=== PATIENT | male | born 1930 | race Caucasian/White ===

== ENCOUNTER 2021-07-09 14:54 | Inpatient (IN) ==
[2021-07-09] MEDS ORDERED: *HR* Dextrose 50 % in Water (Syg) 50 ML SYRINGE IVP PRN (15:30)
[2021-07-09] MEDS ORDERED: D5% in Water 1,000 ML IVC PRN (15:30)
[2021-07-09] MEDS ORDERED: Dextrose Gel 15 GM/37.5 ML TUBE PO PRN ×2 (15:30)
[2021-07-09] MEDS ORDERED: Warfarin perPT PO PRN (18:00)
[2021-07-09] MEDS: Insulin LISPRO 300 UNITS/3 ML VIAL SUBQ SCH ×2 (21:44)
[2021-07-09] MEDS: Gabapentin 400 MG CAPSULE PO SCH (22:30)
[2021-07-10] MEDS: *HR* OxyCODONE Immed Rel 5 MG TABLET PO PRN ×3 (04:45→17:12)
[2021-07-10 05:34] LABS: Basophils % 0.4 %; Eosinophils # 0.3 K/mcL (0.0-0.6); Eosinophils % 4.1 %; Hematocrit 31.3 % (37.5-50.1); Immature Granulocytes % 1.2 % (0-4); Lymphocytes # 0.9 K/mcL (0.6-4.6); Lymphocytes % 12.3 %; Mean Corpuscular HGB Conc 31.9 g/dL (31.6-35.5); Mean Corpuscular Volume 96.9 fL (83.0-100.0); Monocytes # 0.9 K/mcL (0.0-1.3); Monocytes % 11.8 %; Neutrophils # 5.1 K/mcL (1.6-8.9); Platelet Count 154 K/mcL (140-400); Red Blood Count 3.23 M/mcL (4.19-5.50); Red Cell Distribution Width 14.6 % (11.5-14.5); Segmented Neutrophils % 70.2 %; White Blood Count 7.3 K/mcL (4.3-11.1)
[2021-07-10 05:38] LABS: INR 1.4; Prothrombin Time 15.7 Seconds (9.4-12.1)
[2021-07-10 05:48] LABS: Calcium 8.1 mg/dL (8.6-10.3); Potassium 4.4 mEq/L (3.5-5.1)
[2021-07-10] MEDS: *HR* Enoxaparin 100 MG/ML SYRINGE SQ SCH ×3 (06:30→17:12)
[2021-07-10] MEDS: Insulin LISPRO 300 UNITS/3 ML VIAL SUBQ SCH ×4 (09:05→19:50)
[2021-07-10] MEDS: lisinopriL 5 MG TABLET PO SCH (09:06)
[2021-07-10] MEDS: Furosemide 40 MG TABLET PO SCH (09:07)
[2021-07-10] MEDS: Gabapentin 400 MG CAPSULE PO SCH ×2 (09:07→20:07)
[2021-07-10] MEDS ORDERED: MOM Conc 10 ML UD.LIQ PO PRN (11:04)
[2021-07-10] MEDS ORDERED: Ipratropium/Albuterol Neb 3 ML IH PRN (12:46)
[2021-07-10] MEDS ORDERED: *HR* Warfarin 3 MG TABLET PO ONE (18:00)
[2021-07-10] MEDS: polyethylene glycoL 3350 17 GM POWD.PACK PO SCH (20:07)
[2021-07-10] MEDS ORDERED: Sennosides/Docusate Sodium TABLET PO PRN (21:00)
[2021-07-11] MEDS: *HR* Enoxaparin 100 MG/ML SYRINGE SQ SCH (05:30)
[2021-07-11] MEDS: *HR* OxyCODONE Immed Rel 5 MG TABLET PO PRN (05:30)
[2021-07-11] MEDS ORDERED: Acetaminophen 325 MG TABLET PO PRN (06:00)
[2021-07-11 06:33] LABS: INR 1.6; Prothrombin Time 17.9 Seconds (9.4-12.1)
[2021-07-11] MEDS: polyethylene glycoL 3350 17 GM POWD.PACK PO SCH (08:49)
[2021-07-11] MEDS: *HR* OxyCODONE/APAP 7.5/325 TABLET PO PRN (08:49)
[2021-07-11] MEDS: tiZANidine 4 MG TABLET PO PRN (08:49)
[2021-07-11] MEDS: lisinopriL 5 MG TABLET PO SCH (08:50)
[2021-07-11] MEDS: Insulin LISPRO 300 UNITS/3 ML VIAL SUBQ SCH ×4 (08:50→21:32)
[2021-07-11] MEDS: Gabapentin 400 MG CAPSULE PO SCH (08:50)
[2021-07-11] MEDS: Furosemide 40 MG TABLET PO SCH (08:50)
[2021-07-11 11:53] LABS: Hematocrit 26.4 % (37.5-50.1); Hemoglobin 8.4 g/dL (12.9-16.9); Mean Corpuscular HGB Conc 31.8 g/dL (31.6-35.5); Mean Corpuscular Hemoglobin 30.8 pg (28.0-33.3); Mean Corpuscular Volume 96.7 fL (83.0-100.0); Mean Platelet Volume 10.5 fL (9.4-12.4); Platelet Count 168 K/mcL (140-400); Red Blood Count 2.73 M/mcL (4.19-5.50); Red Cell Distribution Width 14.7 % (11.5-14.5); White Blood Count 7.3 K/mcL (4.3-11.1)
[2021-07-11] MEDS: Gabapentin 300 MG CAPSULE PO SCH ×2 (15:54→19:58)
[2021-07-11] MEDS ORDERED: *HR* Warfarin 3 MG TABLET PO ONE (18:00)
[2021-07-12] MEDS: *HR* OxyCODONE Immed Rel 5 MG TABLET PO PRN (02:08)
[2021-07-12 06:03] LABS: Basophils % 0.3 %; Eosinophils # 0.4 K/mcL (0.0-0.6); Eosinophils % 5.1 %; Hematocrit 26.6 % (37.5-50.1); Hemoglobin 8.4 g/dL (12.9-16.9); Immature Granulocytes % 2.2 % (0-4); Lymphocytes # 0.9 K/mcL (0.6-4.6); Lymphocytes % 13.1 %; Mean Corpuscular HGB Conc 31.6 g/dL (31.6-35.5); Mean Corpuscular Hemoglobin 30.5 pg (28.0-33.3); Mean Corpuscular Volume 96.7 fL (83.0-100.0); Mean Platelet Volume 9.8 fL (9.4-12.4); Monocytes # 0.7 K/mcL (0.0-1.3); Monocytes % 10.6 %; Neutrophils # 4.7 K/mcL (1.6-8.9); Platelet Count 170 K/mcL (140-400); Red Blood Count 2.75 M/mcL (4.19-5.50); Red Cell Distribution Width 14.6 % (11.5-14.5); Segmented Neutrophils % 68.7 %; White Blood Count 6.9 K/mcL (4.3-11.1)
[2021-07-12 06:16] LABS: INR 1.6; Prothrombin Time 18.3 Seconds (9.4-12.1)
[2021-07-12 06:24] LABS: Albumin 2.6 g/dL (3.5-5.7); Albumin/Globulin Ratio 0.9 (1.1-2.2); Bilirubin,Total 0.8 mg/dL (0.3-1.0); Calcium 8.1 mg/dL (8.6-10.3); Globulin 2.8 g/dL (2.4-3.5); Potassium 4.4 mEq/L (3.5-5.1); Total Protein 5.4 g/dL (6.4-8.9)
[2021-07-12] MEDS: lisinopriL 5 MG TABLET PO SCH (07:27)
[2021-07-12] MEDS: *HR* OxyCODONE/APAP 7.5/325 TABLET PO PRN ×3 (07:27→21:50)
[2021-07-12] MEDS: Gabapentin 300 MG CAPSULE PO SCH ×3 (07:28→21:49)
[2021-07-12] MEDS: Furosemide 40 MG TABLET PO SCH (07:28)
[2021-07-12] MEDS: polyethylene glycoL 3350 17 GM POWD.PACK PO SCH (07:28)
[2021-07-12] MEDS: Insulin LISPRO 300 UNITS/3 ML VIAL SUBQ SCH ×4 (07:32→21:49)
[2021-07-12] MEDS ORDERED: *HR* Warfarin 4 MG TABLET PO ONE (18:00)
[2021-07-13 05:47] LABS: Prothrombin Time 21.7 Seconds (9.4-12.1)
[2021-07-13] MEDS: Insulin LISPRO 300 UNITS/3 ML VIAL SUBQ SCH ×4 (08:23→21:00)
[2021-07-13] MEDS: polyethylene glycoL 3350 17 GM POWD.PACK PO SCH (08:36)
[2021-07-13] MEDS: lisinopriL 5 MG TABLET PO SCH (08:36)
[2021-07-13] MEDS: Gabapentin 300 MG CAPSULE PO SCH ×3 (08:37→21:00)
[2021-07-13] MEDS: *HR* OxyCODONE Immed Rel 5 MG TABLET PO PRN ×2 (08:37→16:22)
[2021-07-13] MEDS ORDERED: *HR* Warfarin 3 MG TABLET PO ONE (18:00)
[2021-07-13] MEDS: tiZANidine 4 MG TABLET PO PRN (21:00)
[2021-07-14 06:25] LABS: Basophils % 0.3 %; Eosinophils # 0.3 K/mcL (0.0-0.6); Hematocrit 26.3 % (37.5-50.1); Hemoglobin 8.4 g/dL (12.9-16.9); Immature Granulocytes % 2.1 % (0-4); Lymphocytes # 0.9 K/mcL (0.6-4.6); Lymphocytes % 12.7 %; Mean Corpuscular HGB Conc 31.9 g/dL (31.6-35.5); Mean Corpuscular Hemoglobin 30.9 pg (28.0-33.3); Mean Corpuscular Volume 96.7 fL (83.0-100.0); Mean Platelet Volume 10.7 fL (9.4-12.4); Monocytes # 0.8 K/mcL (0.0-1.3); Monocytes % 11.3 %; Neutrophils # 4.7 K/mcL (1.6-8.9); Platelet Count 218 K/mcL (140-400); Red Blood Count 2.72 M/mcL (4.19-5.50); Red Cell Distribution Width 14.7 % (11.5-14.5); Segmented Neutrophils % 68.6 %; White Blood Count 6.8 K/mcL (4.3-11.1)
[2021-07-14 06:40] LABS: INR 2.4; Prothrombin Time 26.9 Seconds (9.4-12.1)
[2021-07-14 07:09] LABS: Calcium 8.1 mg/dL (8.6-10.3); Potassium 4.5 mEq/L (3.5-5.1)
[2021-07-14] MEDS: *HR* OxyCODONE Immed Rel 5 MG TABLET PO PRN (07:09)
[2021-07-14] MEDS: Gabapentin 300 MG CAPSULE PO SCH ×3 (08:21→20:27)
[2021-07-14] MEDS: lisinopriL 5 MG TABLET PO SCH (08:21)
[2021-07-14] MEDS: Insulin LISPRO 300 UNITS/3 ML VIAL SUBQ SCH ×4 (08:22→20:31)
[2021-07-14] MEDS: polyethylene glycoL 3350 17 GM POWD.PACK PO SCH (08:22)
[2021-07-14] MEDS: Furosemide 40 MG TABLET PO SCH (11:06)
[2021-07-14] MEDS ORDERED: *HR* Warfarin 2 MG TABLET PO ONE (18:00)
[2021-07-14] MEDS: *HR* OxyCODONE/APAP 7.5/325 TABLET PO PRN (20:27)
[2021-07-15] MEDS: *HR* OxyCODONE Immed Rel 5 MG TABLET PO PRN ×2 (04:33→11:56)
[2021-07-15 04:50] LABS: INR 2.5; Prothrombin Time 27.2 Seconds (9.4-12.1)
[2021-07-15] MEDS: Insulin LISPRO 300 UNITS/3 ML VIAL SUBQ SCH ×4 (08:08→20:57)
[2021-07-15] MEDS: lisinopriL 5 MG TABLET PO SCH (08:09)
[2021-07-15] MEDS: Gabapentin 300 MG CAPSULE PO SCH ×3 (08:09→20:08)
[2021-07-15] MEDS: Furosemide 40 MG TABLET PO SCH (08:10)
[2021-07-15] MEDS: polyethylene glycoL 3350 17 GM POWD.PACK PO SCH (08:11)
[2021-07-15] MEDS ORDERED: *HR* Warfarin 3 MG TABLET PO ONE (18:00)
[2021-07-16] MEDS: *HR* OxyCODONE Immed Rel 5 MG TABLET PO PRN ×3 (05:14→13:57)
[2021-07-16 05:18] LABS: Basophils % 0.5 %; Eosinophils # 0.4 K/mcL (0.0-0.6); Eosinophils % 5.8 %; Hematocrit 27.5 % (37.5-50.1); Hemoglobin 8.6 g/dL (12.9-16.9); Immature Granulocytes % 2.4 % (0-4); Lymphocytes % 13.5 %; Mean Corpuscular HGB Conc 31.3 g/dL (31.6-35.5); Mean Corpuscular Hemoglobin 30.4 pg (28.0-33.3); Mean Corpuscular Volume 97.2 fL (83.0-100.0); Mean Platelet Volume 9.8 fL (9.4-12.4); Monocytes # 0.7 K/mcL (0.0-1.3); Monocytes % 8.9 %; Neutrophils # 5.2 K/mcL (1.6-8.9); Platelet Count 272 K/mcL (140-400); Red Blood Count 2.83 M/mcL (4.19-5.50); Red Cell Distribution Width 14.4 % (11.5-14.5); Segmented Neutrophils % 68.9 %; White Blood Count 7.6 K/mcL (4.3-11.1)
[2021-07-16 05:21] LABS: INR 2.5; Prothrombin Time 27.8 Seconds (9.4-12.1)
[2021-07-16 05:28] LABS: BUN/Creatinine Ratio 36 (6-26); Blood Urea Nitrogen 47 mg/dL (8-23); Calcium 8.3 mg/dL (8.6-10.3); Carbon Dioxide 28 mEq/L (23-29); Chloride 104 mEq/L (98-107); Glucose 142 mg/dL (70-105); Osmolality,Calculated 303 (280-300); Potassium 4.5 mEq/L (3.5-5.1); Sodium 139 mEq/L (136-145); eGFR For African Americans > 60 (> 60); eGFR For Non-African Americans 51 (> 60)
[2021-07-16] MEDS: Insulin LISPRO 300 UNITS/3 ML VIAL SUBQ SCH ×4 (09:28→21:30)
[2021-07-16] MEDS: lisinopriL 5 MG TABLET PO SCH (09:29)
[2021-07-16] MEDS: Furosemide 40 MG TABLET PO SCH (09:29)
[2021-07-16] MEDS: polyethylene glycoL 3350 17 GM POWD.PACK PO SCH (09:36)
[2021-07-16] MEDS: Gabapentin 300 MG CAPSULE PO SCH ×3 (09:37→21:04)
[2021-07-16] MEDS ORDERED: *HR* Warfarin 3 MG TABLET PO ONE (18:00)
[2021-07-16] MEDS: *HR* OxyCODONE/APAP 7.5/325 TABLET PO PRN (18:41)
[2021-07-17 05:15] LABS: INR 2.7; Prothrombin Time 30.3 Seconds (9.4-12.1)
[2021-07-17] MEDS: Insulin LISPRO 300 UNITS/3 ML VIAL SUBQ SCH ×4 (08:30→21:07)
[2021-07-17] MEDS: *HR* OxyCODONE Immed Rel 5 MG TABLET PO PRN ×2 (08:37→13:10)
[2021-07-17] MEDS: Furosemide 40 MG TABLET PO SCH (08:38)
[2021-07-17] MEDS: lisinopriL 5 MG TABLET PO SCH (08:38)
[2021-07-17] MEDS: Gabapentin 300 MG CAPSULE PO SCH ×3 (08:38→21:07)
[2021-07-17] MEDS: polyethylene glycoL 3350 17 GM POWD.PACK PO SCH (08:38)
[2021-07-17] MEDS ORDERED: *HR* Warfarin 2 MG TABLET PO ONE (18:00)
[2021-07-18 04:40] LABS: INR 3.2; Prothrombin Time 35.2 Seconds (9.4-12.1)
[2021-07-18] MEDS: Insulin LISPRO 300 UNITS/3 ML VIAL SUBQ SCH ×4 (09:10→20:30)
[2021-07-18] MEDS: *HR* OxyCODONE/APAP 7.5/325 TABLET PO PRN ×3 (09:17→23:52)
[2021-07-18] MEDS: Gabapentin 300 MG CAPSULE PO SCH ×3 (09:18→20:30)
[2021-07-18] MEDS: Furosemide 40 MG TABLET PO SCH (09:18)
[2021-07-18] MEDS: lisinopriL 5 MG TABLET PO SCH (09:18)
[2021-07-18] MEDS: polyethylene glycoL 3350 17 GM POWD.PACK PO SCH (09:18)
[2021-07-18] MEDS: predniSONE 20 MG TABLET PO SCH (15:07)
[2021-07-18] MEDS: tiZANidine 4 MG TABLET PO PRN (20:29)
[2021-07-19 06:17] LABS: Hematocrit 28.3 % (37.5-50.1); Hemoglobin 9.1 g/dL (12.9-16.9); Mean Corpuscular HGB Conc 32.2 g/dL (31.6-35.5); Mean Corpuscular Hemoglobin 30.7 pg (28.0-33.3); Mean Corpuscular Volume 95.6 fL (83.0-100.0); Mean Platelet Volume 9.8 fL (9.4-12.4); Platelet Count 365 K/mcL (140-400); Red Blood Count 2.96 M/mcL (4.19-5.50); Red Cell Distribution Width 14.4 % (11.5-14.5); White Blood Count 6.8 K/mcL (4.3-11.1)
[2021-07-19 06:31] LABS: INR 2.8; Prothrombin Time 30.9 Seconds (9.4-12.1)
[2021-07-19 06:45] LABS: Albumin 2.8 g/dL (3.5-5.7); Bilirubin,Total 0.8 mg/dL (0.3-1.0); Globulin 2.9 g/dL (2.4-3.5); Magnesium 2.4 mg/dL (1.6-2.6); Potassium 4.7 mEq/L (3.5-5.1); Total Protein 5.7 g/dL (6.4-8.9)
[2021-07-19 06:46] LABS: Calcium 8.2 mg/dL (8.6-10.3)
[2021-07-19] MEDS: *HR* OxyCODONE/APAP 7.5/325 TABLET PO PRN ×2 (07:23→15:16)
[2021-07-19] MEDS: predniSONE 20 MG TABLET PO SCH (07:23)
[2021-07-19] MEDS: polyethylene glycoL 3350 17 GM POWD.PACK PO SCH (07:23)
[2021-07-19] MEDS: lisinopriL 5 MG TABLET PO SCH (07:24)
[2021-07-19] MEDS: Insulin LISPRO 300 UNITS/3 ML VIAL SUBQ SCH ×4 (07:24→21:45)
[2021-07-19] MEDS: Gabapentin 300 MG CAPSULE PO SCH ×3 (07:24→21:45)
[2021-07-19] MEDS: Furosemide 40 MG TABLET PO SCH (07:24)
[2021-07-19] MEDS: tiZANidine 4 MG TABLET PO PRN ×2 (10:46→21:45)
[2021-07-19] MEDS ORDERED: *HR* Warfarin 1 MG TABLET PO ONE (18:00)
[2021-07-19] MEDS: *HR* OxyCODONE Immed Rel 5 MG TABLET PO PRN (21:46)
[2021-07-20 06:47] LABS: INR 2.6; Prothrombin Time 28.9 Seconds (9.4-12.1)
[2021-07-20] MEDS: Insulin LISPRO 300 UNITS/3 ML VIAL SUBQ SCH ×4 (07:49→21:40)
[2021-07-20] MEDS: lisinopriL 5 MG TABLET PO SCH (07:50)
[2021-07-20] MEDS: Gabapentin 300 MG CAPSULE PO SCH ×3 (07:51→21:38)
[2021-07-20] MEDS: Furosemide 40 MG TABLET PO SCH (07:51)
[2021-07-20] MEDS: predniSONE 20 MG TABLET PO SCH (07:51)
[2021-07-20] MEDS: *HR* OxyCODONE/APAP 7.5/325 TABLET PO PRN ×2 (07:51→15:25)
[2021-07-20] MEDS: polyethylene glycoL 3350 17 GM POWD.PACK PO SCH (07:54)
[2021-07-20] MEDS: tiZANidine 4 MG TABLET PO PRN ×2 (09:44→21:38)
[2021-07-20] MEDS ORDERED: *HR* Warfarin 1 MG TABLET PO ONE (18:00)
[2021-07-20] MEDS: *HR* OxyCODONE Immed Rel 5 MG TABLET PO PRN (21:38)
[2021-07-21 06:14] LABS: INR 2.2; Prothrombin Time 24.3 Seconds (9.4-12.1)
[2021-07-21] MEDS: Insulin LISPRO 300 UNITS/3 ML VIAL SUBQ SCH ×4 (08:10→21:01)
[2021-07-21] MEDS: Gabapentin 300 MG CAPSULE PO SCH ×3 (08:12→21:00)
[2021-07-21] MEDS: *HR* OxyCODONE/APAP 7.5/325 TABLET PO PRN ×3 (08:12→21:00)
[2021-07-21] MEDS: predniSONE 20 MG TABLET PO SCH (08:13)
[2021-07-21] MEDS: Furosemide 40 MG TABLET PO SCH (08:13)
[2021-07-21] MEDS: lisinopriL 5 MG TABLET PO SCH (08:13)
[2021-07-21] MEDS: polyethylene glycoL 3350 17 GM POWD.PACK PO SCH (08:15)
[2021-07-21 15:24] LABS: Calcium 8.1 mg/dL (8.6-10.3); Potassium 4.5 mEq/L (3.5-5.1)
[2021-07-21] MEDS ORDERED: Colchicine 0.6 MG TABLET PO ONE ×2 (15:47→18:30)
[2021-07-21] MEDS: allopurinoL 100 MG TABLET PO SCH (16:30)
[2021-07-21] MEDS ORDERED: *HR* Warfarin 2 MG TABLET PO ONE (18:00)
[2021-07-22 06:45] LABS: Hematocrit 29.1 % (37.5-50.1); Hemoglobin 9.1 g/dL (12.9-16.9); Mean Corpuscular HGB Conc 31.3 g/dL (31.6-35.5); Mean Platelet Volume 9.7 fL (9.4-12.4); Platelet Count 382 K/mcL (140-400); Red Blood Count 3.03 M/mcL (4.19-5.50); Red Cell Distribution Width 14.8 % (11.5-14.5); White Blood Count 8.9 K/mcL (4.3-11.1)
[2021-07-22 06:52] LABS: INR 1.9; Prothrombin Time 21.6 Seconds (9.4-12.1)
[2021-07-22 07:04] LABS: Albumin 2.9 g/dL (3.5-5.7); Albumin/Globulin Ratio 1.1 (1.1-2.2); Bilirubin,Total 0.8 mg/dL (0.3-1.0); Globulin 2.6 g/dL (2.4-3.5); Magnesium 2.3 mg/dL (1.6-2.6); Potassium 3.9 mEq/L (3.5-5.1); Total Protein 5.5 g/dL (6.4-8.9)
[2021-07-22] MEDS: Insulin LISPRO 300 UNITS/3 ML VIAL SUBQ SCH ×4 (07:51→20:37)
[2021-07-22] MEDS: lisinopriL 5 MG TABLET PO SCH (08:55)
[2021-07-22] MEDS: predniSONE 20 MG TABLET PO SCH (08:56)
[2021-07-22] MEDS: allopurinoL 100 MG TABLET PO SCH (08:56)
[2021-07-22] MEDS: Furosemide 40 MG TABLET PO SCH (08:56)
[2021-07-22] MEDS: polyethylene glycoL 3350 17 GM POWD.PACK PO SCH (08:56)
[2021-07-22] MEDS: Gabapentin 300 MG CAPSULE PO SCH ×3 (08:56→20:36)
[2021-07-22] MEDS ORDERED: *HR* Warfarin 3 MG TABLET PO ONE (18:00)
[2021-07-22] MEDS: *HR* OxyCODONE/APAP 7.5/325 TABLET PO PRN (20:37)
[2021-07-23] MEDS: *HR* OxyCODONE Immed Rel 5 MG TABLET PO PRN (05:28)
[2021-07-23 05:58] LABS: INR 1.9; Prothrombin Time 21.2 Seconds (9.4-12.1)
[2021-07-23] MEDS: Insulin LISPRO 300 UNITS/3 ML VIAL SUBQ SCH ×4 (07:34→20:54)
[2021-07-23] MEDS: Furosemide 40 MG TABLET PO SCH (07:45)
[2021-07-23] MEDS: Gabapentin 300 MG CAPSULE PO SCH ×3 (07:45→20:55)
[2021-07-23] MEDS: allopurinoL 100 MG TABLET PO SCH (07:45)
[2021-07-23] MEDS: lisinopriL 5 MG TABLET PO SCH (07:45)
[2021-07-23] MEDS: predniSONE 20 MG TABLET PO SCH (07:45)
[2021-07-23] MEDS: polyethylene glycoL 3350 17 GM POWD.PACK PO SCH (07:46)
[2021-07-23] MEDS: tiZANidine 4 MG TABLET PO PRN (12:15)
[2021-07-23] MEDS ORDERED: *HR* Warfarin 3 MG TABLET PO ONE (18:00)
[2021-07-24 05:15] LABS: Prothrombin Time 22.4 Seconds (9.4-12.1)
[2021-07-24] MEDS: Insulin LISPRO 300 UNITS/3 ML VIAL SUBQ SCH ×4 (07:32→21:11)
[2021-07-24] MEDS: lisinopriL 5 MG TABLET PO SCH (08:00)
[2021-07-24] MEDS: Gabapentin 300 MG CAPSULE PO SCH ×3 (08:00→20:52)
[2021-07-24] MEDS: allopurinoL 100 MG TABLET PO SCH (08:00)
[2021-07-24] MEDS: Furosemide 40 MG TABLET PO SCH (08:00)
[2021-07-24] MEDS: *HR* OxyCODONE/APAP 7.5/325 TABLET PO PRN ×2 (08:01→20:54)
[2021-07-24] MEDS: polyethylene glycoL 3350 17 GM POWD.PACK PO SCH (08:02)
[2021-07-24] MEDS ORDERED: allopurinoL 100 MG TABLET PO ONE (16:35)
[2021-07-24] MEDS ORDERED: *HR* Warfarin 3 MG TABLET PO ONE (18:00)
[2021-07-24] MEDS: tiZANidine 4 MG TABLET PO PRN (20:53)
[2021-07-25 05:38] LABS: INR 1.9; Prothrombin Time 21.5 Seconds (9.4-12.1)
[2021-07-25] MEDS: Insulin LISPRO 300 UNITS/3 ML VIAL SUBQ SCH ×3 (07:41→16:26)
[2021-07-25] MEDS: polyethylene glycoL 3350 17 GM POWD.PACK PO SCH (07:42)
[2021-07-25] MEDS: Gabapentin 300 MG CAPSULE PO SCH ×3 (08:01→21:47)
[2021-07-25] MEDS: tiZANidine 4 MG TABLET PO PRN (08:02)
[2021-07-25] MEDS: lisinopriL 5 MG TABLET PO SCH (08:03)
[2021-07-25] MEDS: Furosemide 40 MG TABLET PO SCH (08:03)
[2021-07-25] MEDS: *HR* OxyCODONE/APAP 7.5/325 TABLET PO PRN (08:05)
[2021-07-25] MEDS: allopurinoL 300 MG TABLET PO SCH (08:30)
[2021-07-25] MEDS ORDERED: 0.9 % Sodium Chloride 1,000 ML ONE (09:23)
[2021-07-25] MEDS ORDERED: 0.9 % Sodium Chloride 1,000 ML IVC SCH (09:30)
[2021-07-25 09:37] LABS: Basophils % 0.5 %; Eosinophils # 0.2 K/mcL (0.0-0.6); Hemoglobin 9.7 g/dL (12.9-16.9); Immature Granulocytes % 1.8 % (0-4); Lymphocytes # 1.1 K/mcL (0.6-4.6); Lymphocytes % 17.9 %; Mean Corpuscular HGB Conc 31.3 g/dL (31.6-35.5); Mean Platelet Volume 9.9 fL (9.4-12.4); Monocytes # 0.5 K/mcL (0.0-1.3); Monocytes % 7.3 %; Neutrophils # 4.4 K/mcL (1.6-8.9); Platelet Count 364 K/mcL (140-400); Red Blood Count 3.23 M/mcL (4.19-5.50); Red Cell Distribution Width 15.4 % (11.5-14.5); Segmented Neutrophils % 69.5 %; White Blood Count 6.3 K/mcL (4.3-11.1)
[2021-07-25 09:49] LABS: Albumin 2.9 g/dL (3.5-5.7); Albumin/Globulin Ratio 1.4 (1.1-2.2); Bilirubin,Total 0.9 mg/dL (0.3-1.0); Calcium 8.4 mg/dL (8.6-10.3); Globulin 2.1 g/dL (2.4-3.5); Potassium 4.3 mEq/L (3.5-5.1)
[2021-07-25] MEDS ORDERED: *HR* Warfarin 3 MG TABLET PO ONE (18:00)
[2021-07-26 06:33] LABS: INR 2.2; Prothrombin Time 24.1 Seconds (9.4-12.1)
[2021-07-26] MEDS: Insulin LISPRO 300 UNITS/3 ML VIAL SUBQ SCH ×5 (06:38→22:20)
[2021-07-26] MEDS: allopurinoL 300 MG TABLET PO SCH (08:43)
[2021-07-26] MEDS: lisinopriL 5 MG TABLET PO SCH (08:43)
[2021-07-26] MEDS: Gabapentin 300 MG CAPSULE PO SCH ×3 (08:43→22:22)
[2021-07-26] MEDS: polyethylene glycoL 3350 17 GM POWD.PACK PO SCH (08:51)
[2021-07-26] MEDS: *HR* OxyCODONE/APAP 5/325 TABLET PO PRN ×2 (13:56→22:22)
[2021-07-26] MEDS ORDERED: *HR* Warfarin 3 MG TABLET PO ONE (18:00)
[2021-07-26 20:57] VITALS: RESP 16
[2021-07-27 06:42] LABS: INR 2.2; Prothrombin Time 24.6 Seconds (9.4-12.1)
[2021-07-27 07:43] VITALS: BP 146/70; PULSE 64; TEMP 97.5; O2SAT 91
[2021-07-27] MEDS: Insulin LISPRO 300 UNITS/3 ML VIAL SUBQ SCH (10:04)
[2021-07-27] MEDS: Gabapentin 300 MG CAPSULE PO SCH (10:07)
[2021-07-27] MEDS: lisinopriL 5 MG TABLET PO SCH (10:07)
[2021-07-27] MEDS: allopurinoL 300 MG TABLET PO SCH (10:07)
[2021-07-27] MEDS: polyethylene glycoL 3350 17 GM POWD.PACK PO SCH (10:10)
== END 2021-07-27 10:56 | disposition home health service (06) | DRG 559 ==
LOC: INPGRE 20:55
PROVIDERS: ADMIT Family Medicine; ATTEND Family Medicine